=== PATIENT | female | born 2000 | race Caucasian/White ===

== ENCOUNTER 2022-11-30 21:45 | Emergency (ER) | payer OTHER ==
[~2022-11-30] VITALS: Ht 160 cm; Wt 54.5 kg
[~2022-11-30 21:45] MED LIST: APIX5TAB MT
[2022-11-30 22:00] VITALS: BP 111/63
[2022-11-30 22:50] LABS: CHLORIDE 108 mEq/L (98-107)
[2022-11-30 23:00] LABS: BASOPHILS % 0.5 % (0.0-2.0); EOSINOPHILS % 1.3 % (0.0-5.0); HEMOGLOBIN. 13.7 g/dL (12.0-16.0); LYMPHOCYTES % 38.7 % (20.0-50.0); MEAN CORPUSCULAR HEMOGLOBIN 30.3 pg (28.0-32.0); MEAN CORPUSCULAR VOLUME 90.6 fL (81.0-99.0); MEAN PLATELET VOLUME 8.2 fl (7.4-10.4); MONOCYTES % 7.6 % (2.0-8.0); NEUTROPHILS % 51.9 % (40.0-76.0); PLATELET 274 x1000/uL (130-400); RED BLOOD CELL COUNT 4.53 mill/uL (4.2-5.4); RED CELL DISTRIBUTION WIDTH 13.1 % (11.6-14.6)
[2022-11-30 23:07] LABS: HCG SCREEN NEGATIVE
[2022-12-01] MEDS ORDERED: APIX5TAB MT (02:14)
[2022-12-01] MEDS ORDERED: IOHEXOL-350 100 ML BOTTLE ONE (04:24)
== END 2022-12-01 04:00 | disposition home or self-care (01) ==
LOC: ER 21:45
DX: R06.02 Shortness of breath (principal); M79.602 Pain in left arm; F15.10 Other stimulant abuse, uncomplicated
CPT/HCPCS: 36415; 71275; 80053; 81025; 83880; 84484; 84703; 85025; 99291; Q9967